=== PATIENT | male | born 1965 | race Caucasian/White ===

== ENCOUNTER 2023-03-01 12:31 | Emergency (ER) | payer OTHER | END 2023-03-01 14:02 | disposition home or self-care (01) | LOC: JP.ED 12:31 | DX: S40.861A Insect bite (nonvenomous) of right upper arm, initial encounter (principal); Z86.16 Personal history of COVID-19; Z72.0 Tobacco use; W57.XXXA Bitten or stung by nonvenomous insect and other nonvenomous arthropods, initial encounter | CPT/HCPCS: 99282 ==